=== PATIENT | female | born 1925 | race Two or more races ===

== ENCOUNTER 2016-06-02 13:15 | Emergency (ER) | payer MEDICARE, MEDICAID ==
[~2016-06-02] VITALS: Ht 154.9 cm; Wt 74.8 kg
[~2016-06-02 13:15] MED LIST: PREDNISONE20 MG ORAL
--- NOTE | 2016-06-02 14:04 | Emergency Room Report ---
History of Present Illness General Chief Complaint: Pain Source: Family Member Present Illness HPI Patient present with complaints of bilateral knee pain However on focused evaluation complains mainly of the left knee pain Patient had a fall approximately one month ago since then she has been having increased pain Patient had made contact with her primary physician dr ireland Had ordered a bone density test however as this this was delayed another month patient presents for further evaluation Denies any fevers or chills denies any neuropathy it appears the patient has increased pain with ambulation Allergies: Coded Allergies: No Known Allergies (Unverified , 12/25/14) Patient History Past Medical History: see triage record Pertinent Family History: none Reviewed Nursing Documentation: PMH: Agreed, PSxH: Agreed Nursing Documentation-PMH Past Medical History: No History, Except For Hx Hypertension: Yes Review of Systems All Other Systems: negative except mentioned in HPI Physical Exam Vital Signs Date Time Temp Pulse Resp B/P Pulse Ox O2 Delivery O2 Flow Rate FiO2 06/02/16 13:36 98.1 79 18 160/74 96 Room Air Sp02 EP Interpretation: reviewed, normal General Appearance: well appearing, no apparent distress Head: normocephalic, atraumatic Eyes: bilateral eye EOMI, bilateral eye PERRL ENT: hearing grossly normal, normal pharynx, TMs + canals normal, uvula midline Neck: full range of motion, supple, no meningismus, no bony tend Respiratory: chest non-tender, normal breath sounds Cardiovascular #1: regular rate, rhythm Musculoskeletal: other - 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 evidence of previous surgery on the left knee, there is evidence of a very small likely joint effusion clinically on the left knee, however the patient ambulate with a walker and without any obvious focal deficit Neurologic: alert, oriented x3, responsive, promotions coordinator III-XII nml as tested Skin: normal color, no rash Lymphatic: no adenopathy Medical Decision Making Diagnostic Impression: Primary Impression: Knee pain ER Course Patient's presentation appears to have significant chronicity to it Given the questionable change in status x-ray imaging was obtained for initial evaluation family was asking regarding possible bone density test At this time she was advised that this is not performed in the emergency room x- ray imaging shows arthritic changes and patient is otherwise stable for continued close outpatient followup Other X-Ray Diagnostic Results Other X-Ray Diagnostic Results : EP Interpretation: Yes Findings: no fractures, no dislocation, no soft tissue swelling, other - Arthritic changes previous surgery Number of Views: 3 - left knee Last Vital Signs Date Time Temp Pulse Resp B/P Pulse Ox O2 Delivery O2 Flow Rate FiO2 06/02/16 13:36 98.1 79 18 160/74 96 Room Air Status: improved Disposition: HOME, SELF-CARE Condition: Improved Scripts Ibuprofen* (MOTRIN*) 600 Mg Tablet 600 MG ORAL Q12HR Y for For Pain, #12 TAB 0 Refills Prov: IVAN GARCIA D.O. 06/02/16 Acetaminophen (Tylenol) 325 Mg Tablet 650 MG ORAL Q8HR Y for Prn Pain/Headache/Temp > 101, #20 TAB 0 Refills Prov: IVAN GARCIA D.O. 06/02/16 Additional Instructions: Patient is provided with the discharge instructions notified to follow up with primary doctor in the next 2-3 days otherwise return to the er with any worsening symptoms. Please note that this report is being documented using [employer] technology. This can lead to erroneous entry secondary to incorrect interpretation by the dictating instrument. IVAN GARCIA D.O. Jun 02, 2016 14:04
[2016-06-02] MEDS ORDERED: TYLENOL325 MG ORAL (16:16)
[2016-06-02] MEDS ORDERED: IBUPROFEN600 MG ORAL (16:16)
[2016-06-02 16:23] VITALS: BP 166/88
--- NOTE | 2016-06-02 16:41 | Diagnostic Imaging Report ---
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 The hardware is intact. No definite acute fractures. Surgical clips are noted. Note that the the hardware extends beyond the imaging volume, and fracture of the [place] bone proximal or distal to the prosthesis cannot be ruled out Impression:Findings as noted. No definite acute bony trauma. No limitations of exam, as described This agrees with the preliminary interpretation provided by Dr. Carolina
== END 2016-06-02 16:31 | disposition home or self-care (01) ==
LOC: EMR 14:17
DX: M25.562 Pain in left knee (principal); M25.561 Pain in right knee; I10 Essential (primary) hypertension
CPT/HCPCS: 99284